=== PATIENT | female | born 1945 | race African-American/Black ===

== ENCOUNTER 2022-11-25 10:35 | Emergency (ER) | payer OTHER ==
[2022-11-25 10:47] VITALS: BP 154/68; PULSE 79; RESP 18; TEMP 98; BMI 38.4
[2022-11-25] MEDS ORDERED: TETRACAINE 0.5% HCL 0.6ML DROPPER.BOTTLE OD ONE (11:42)
[2022-11-25] MEDS ORDERED: FLUORESCEIN NA 1 EA STRIP OD ONE (11:42)
== END 2022-11-25 12:10 | disposition home or self-care (01) ==
LOC: JERFT 10:35
DX: H05.011 Cellulitis of right orbit (principal); H10.31 Unspecified acute conjunctivitis, right eye
CPT/HCPCS: 99283-25